=== PATIENT | female | born 1975 | race Caucasian/White ===

== ENCOUNTER 2018-07-13 00:02 | Emergency (ER) | payer OTHER ==
[~2018-07-13] VITALS: Ht 167.6 cm; Wt 106.6 kg
--- OUTSIDE RECORDS SUMMARY | 2018-07-13 00:04 | XMS ---
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 [facility] VISIT COUNT (12 MO.) 1 MAURO Jiménez TOTAL 1 NOTE: Visits indicate total known visits. ED/UCC VISIT TRACKING (12 MO.) 07/13/2018 00:03 MAURO Harmon OR TYPE: Emergency COMPLAINT: - L FOOT INJURY INPATIENT VISIT TRACKING (12 MO.) No inpatient visits to display in this time frame [id number]
[2018-07-13] MEDS ORDERED: METFORMIN HCL500 MG PO (00:12)
[2018-07-13] MEDS ORDERED: ALPRAZOLAM0.5 MG PO (00:12)
[2018-07-13] MEDS ORDERED: VITAMIN D250000 UNIT PO (00:12)
[2018-07-13] MEDS ORDERED: LEVOTHYROXINE88 MCG PO (00:12)
== END 2018-07-13 00:28 | disposition home or self-care (01) ==
LOC: ED 00:02
DX: S90.32XA Contusion of left foot, initial encounter (principal); E11.9 Type 2 diabetes mellitus without complications; E03.9 Hypothyroidism, unspecified; Z79.84 Long term (current) use of oral hypoglycemic drugs; W22.03XA Walked into furniture, initial encounter
CPT/HCPCS: 99283